=== PATIENT | female | born 1985 | race Two or more races ===

== ENCOUNTER 2018-05-30 15:37 | Emergency (ER) | payer OTHER ==
[~2018-05-30] VITALS: Ht 162.6 cm; Wt 55.8 kg
== END 2018-05-30 16:47 | disposition home or self-care (01) ==
LOC: ER 15:37
DX: S61.214A Laceration without foreign body of right ring finger without damage to nail, initial encounter (principal); W45.8XXA Other foreign body or object entering through skin, initial encounter; Y93.89 Activity, other specified; Y92.89 Other specified places as the place of occurrence of the external cause; Y99.8 Other external cause status